=== PATIENT | female | born 1965 | race Caucasian/White ===

== ENCOUNTER 2017-11-18 15:02 | Emergency (ER) | payer SELFPAY ==
[~2017-11-18] VITALS: Ht 152.4 cm; Wt 60.8 kg
[2017-11-18 15:03] VITALS: Ht 152.4 cm; Wt 60.8 kg
[2017-11-18 17:10] VITALS: BP 145/80
== END 2017-11-18 17:11 | disposition home or self-care (01) ==
LOC: ED 15:02
DX: S40.811A Abrasion of right upper arm, initial encounter (principal); W31.89XA Contact with other specified machinery, initial encounter; Y93.H9 Activity, other involving exterior property and land maintenance, building and construction; Y99.8 Other external cause status; Y92.89 Other specified places as the place of occurrence of the external cause
CPT/HCPCS: 90715; J1885; J2270; Q0092; Q0162